=== PATIENT | female | born 1995 | race Caucasian/White ===

== ENCOUNTER → 2024-06-23 | Outpatient (CLI) | payer OTHER ==
[2024-06-23 14:52] LABS: CLUE CELLS NOT OBSERVED (Not Observd)
== END ==
LOC: LAB 13:38
PROVIDERS: Family Medicine
DX: I78.0 Hereditary hemorrhagic telangiectasia (principal); R10.30 Lower abdominal pain, unspecified
CPT/HCPCS: Q0111

== ENCOUNTER → 2024-06-27 | Outpatient (CLI) | payer OTHER | LOC: RAD 10:58 | DX: N94.89 Other specified conditions associated with female genital organs and menstrual cycle (principal); Z98.890 Other specified postprocedural states ==

== ENCOUNTER 2024-08-23 18:39 | Emergency (ER) | payer OTHER ==
[~2024-08-23] VITALS: Ht 177.8 cm; Wt 66.8 kg
[2024-08-23] MEDS ORDERED: predniSONE 20 MG TAB PO ONE (19:15)
[2024-08-23 20:11] VITALS: BP 110/71
== END 2024-08-23 20:12 | disposition home or self-care (01) ==
LOC: ED 18:39
DX: J30.1 Allergic rhinitis due to pollen (principal)
CPT/HCPCS: J7512